=== PATIENT | female | born 1950 | race Two or more races ===

== ENCOUNTER 2018-03-25 12:11 | Outpatient (CLI) | payer OTHER | END 2018-03-25 12:20 | disposition home or self-care (01) | LOC: MAMO-SONO 12:11 | DX: Z12.31 Encounter for screening mammogram for malignant neoplasm of breast (principal); Z87.898 Personal history of other specified conditions; N61.0 Mastitis without abscess; E04.1 Nontoxic single thyroid nodule ==

== ENCOUNTER 2018-03-25 14:10 | Outpatient (CLI) | payer OTHER | END 2018-03-25 14:39 | disposition home or self-care (01) | LOC: NUCLEAR 14:10 | DX: M81.0 Age-related osteoporosis without current pathological fracture (principal) ==

== ENCOUNTER 2019-11-11 09:26 | Outpatient (CLI) | payer OTHER | END 2019-11-11 09:28 | disposition home or self-care (01) | LOC: SONOGRAMA 09:26 → MAMO-SONO 10:15 | DX: S43.421D Sprain of right rotator cuff capsule, subsequent encounter (principal) ==

== ENCOUNTER 2021-06-09 09:24 | Outpatient (CLI) | payer OTHER | END 2021-06-09 14:37 | disposition home or self-care (01) | LOC: SONOGRAMA 09:24 | PROVIDERS: ATTEND Internal Medicine Endocrinology, Diabetes & Metabolism | DX: E04.1 Nontoxic single thyroid nodule (principal) ==